=== PATIENT | male | born 1990 | race American Indian/Alaskan Native ===

== ENCOUNTER 2018-11-25 00:19 | Emergency (ER) | payer SELFPAY ==
[2018-11-25 00:35] VITALS: BP 156/103
[2018-11-25 02:10] LABS: Bilirubin,Urine NEG (Negative); Blood,Urine SM (Negative); Color,Urine Yellow (Yellow); Protein,Urine <15 mg/dL mg/dL (Negative); Urobilinogen,Urine < 2.0 mg/dL (<2.0)
--- NOTE | 2018-11-25 02:57 | Emergency Department Report ---
Chief Complaint: Urogenital-Male Stated Complaint: PENILE DISCHARGE/POSS STD Time Seen by Provider: 11/25/18 02:31 - HPI History of Present Illness: This is a 28-year-old male nontoxic, well nourished in appearance, no acute signs of distress presents to the ED with c/o of intermittent white colored penile discharge x1 week. Patient denies any testicular pain or swelling. Patient denies any penile ulcers or lesions. Patient denies any nausea, vomiting, chest pain, shortness of breathe, fever, chills, headache, back pain, numbness, tingling, stiff neck. Patient denies any urinary symptoms. Patient denies any allergies or PMH. - Exam Vital Signs: Vital Signs 11/25/18 00:30 Temperature 98.2 F Pulse Rate 94 H Respiratory 18 Rate Blood Pressure 156/103 O2 Sat by Pulse 99 Oximetry Physical Exam: no abdominal pain. no back pain. no urinary symptoms. MSE screening note: Focused history and physical exam performed. Due to findings the following was ordered: ED Medical Decision Making - Medical Decision Making This is a 28-year-old male that presents with nonmedical emergency. Patient is stable and was examined by me. Patient is asymptomatic and denies any symptoms. Patient states he just wants to be tested for STD. UA within normal limits. I will refer the patient [facility] and health Department. At time of discharge, the patient does not seem toxic or ill in appearance. No acute signs of distress noted. Patient agrees to discharge treatment plan of care. No further questions noted by the patient. ED Disposition for MSE Clinical Impression: Possible exposure to STD Disposition: Z-07 MED SCREENING EXAM-LEFT Is pt being admited?: No Does the pt Need Aspirin: No Condition: Stable Instructions: Safe Sex (ED) Additional Instructions: Follow-up with a primary care doctor or referral that was provided to you or if symptoms worsen and continue return to emergency room as soon as possible. Referrals: KIMBERLY ALEJANDRO MD [Primary Care Provider] - 3-5 Days JAYY MÁRQUEZ MD [Staff Physician] - 3-5 Days [facility] [Outside] - 3-[address] [facility] [Outside] - 3-5 Days
== END 2018-11-25 03:08 | disposition left against medical advice (07) ==
LOC: ED 00:19
DX: R36.9 Urethral discharge, unspecified (principal)
CPT/HCPCS: 81001

== ENCOUNTER 2021-02-24 21:01 | Emergency (ER) | payer SELFPAY ==
[2021-02-25] MEDS ORDERED: IBUPROFEN 600 MG TAB PO ONE (04:21)
[2021-02-25] MEDS ORDERED: ONDANSETRON 4 MG ODT TAB PO ONE (04:21)
[2021-02-25] MEDS ORDERED: HYDROcodone/ACETAMINOPHEN 5-325 MG TAB PO ONE (04:21)
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
[2021-02-25 08:10] VITALS: BP 128/82
== END 2021-02-25 08:09 | disposition home or self-care (01) ==
LOC: ED 21:01
DX: S63.501A Unspecified sprain of right wrist, initial encounter (principal); S29.012A Strain of muscle and tendon of back wall of thorax, initial encounter; M62.838 Other muscle spasm; M62.830 Muscle spasm of back; F17.200 Nicotine dependence, unspecified, uncomplicated; V49.49XA Driver injured in collision with other motor vehicles in traffic accident, initial encounter; Y93.89 Activity, other specified; Y92.89 Other specified places as the place of occurrence of the external cause; Y99.8 Other external cause status
CPT/HCPCS: 70450; 71046; 72070; 72100; 72125; 99284; J3490; Q0162